=== PATIENT | male | born 1960 | race Caucasian/White ===

== ENCOUNTER 2016-07-07 01:41 | Inpatient (IN) | payer MEDICAID ==
[~2016-07-07] VITALS: Ht 175.3 cm; Wt 61.0 kg
[2016-07-07] VITALS (20 sets, daily range): BP systolic 83–125; BP diastolic 54–76; Ht 175.3 cm; Wt 61.0 kg
--- NOTE | ~2016-07-07 | CN ---
PATIENT NAME:DERIC COLEMAN MEDICAL RECORD: [id number] : 64 LOCATION:[id number] ADMIT DATE: 07/07/16 ACCOUNT: [id number] CONSULTING PHYSICIAN: MONSERRAT BROWN MD REFERRING PHYSICIAN: ISAIAH RUBIO MD DATE OF CONSULTATION: 07/07/2016 CONSULT REQUESTING PHYSICIAN: Isaiah Rubio MD. REASON FOR CONSULTATION: Vent management, drug overdose and acute mental status changes. HISTORY OF PRESENT ILLNESS: Mr. Coleman is a 56-year-old gentleman, who is already intubated and sedated. The history was taken by reviewing the patient's note and talking to the nursing staff, as well as with Dr. Rubio. The patient was brought in yesterday to the ER with respiratory distress. He was electively intubated in the ER. His urine tox screen was positive for multiple medications. On arrival into the ER, he was complaining of some chest pain and respiratory distress. Also, he was found to be hypotensive. His drug urine screen was positive for amphetamine, benzodiazepine and marijuana. His alcohol level was 1. PAST MEDICAL HISTORY: The detail is not obtainable, unknown. ALLERGIES: No known allergy information available. MEDICATIONS: Igenica was reviewed. PERSONAL AND SOCIAL HISTORY: The patient is abusing recreational drugs, marijuana and methamphetamine. FAMILY HISTORY: Not known. PHYSICAL EXAMINATION: GENERAL: Now, the patient is orally intubated and sedated. VITAL SIGNS: The blood pressure is 84-106/58, pulse is 64, respirations 14, temperature is 97.6, SPO2 is 100%. He is on assist control mechanical ventilation, 100% oxygen, tidal volume of 500, rate of 14. HEENT: Conjunctivae pink. Sclerae nonicteric. The pupils are pinpoint. NECK: Supple, no JVD. CHEST: There are bilateral crackles. No wheezing. HEART: Rate and rhythm regular, normal sound, no murmur. ABDOMEN: Soft, bowel sounds present. No hepatosplenomegaly. RECTAL: Deferred. EXTREMITIES: No cyanosis, no clubbing, no pedal edema. SKIN: The skin is warm, normal turgor. CENTRAL NERVOUS SYSTEM: There is no obvious cranial nerve abnormality. The gait was not tested. CHEST RADIOGRAPH: There is an increased bilateral interstitial marking. There is also questionable infiltrate in left lower lobe. OTHER LABORATORY DATA: CBC: The WBC is 10.2, hemoglobin 14.1, hematocrit 40.1, the platelet count 264. Chemistries: Sodium 130, potassium is 3.7, BUN is 26, creatinine 1.5. Magnesium 1.9. Liver enzymes within normal range. ABG: The CONSULT REPORT [id number] DERIC COLEMAN pH is 7.27, pCO2 of 57.9, pO2 of 61 and bicarbonate of 26.8. IMPRESSION: 1. Acute hypoxic hypercapnic respiratory failure. 2. Respiratory acidosis. 3. Recreational drug abuse. 4. Left lower lobe pneumonia. 5. Acute mental status changes secondary to multi-drug overdose. 6. Chest pain, rule out acute coronary syndrome. RECOMMENDATION: 1. We will continue mechanical ventilation, adjust the setting. 2. DVT, GI stress ulcer prevention. 3. Perez culture. 4. Followup labs and chest radiograph. Consult neurology. Discussed at length with Dr. Rubio. The critical care time is [address] Rubio, thank you for involving me in the care of Mr. Coleman. TRANSINT:[id number] Voice Confirmation ID: [id number] DOCUMENT ID: [id number] MONSERRAT BROWN MD CC: ISAIAH RUBIO MD [id number] DICTATION DATE: 07/07/16 1032 FLAME BURNER: 07/07/162014 ADM IN [facility] [address] [id number]
[2016-07-07 02:18] LABS: BASOPHILS 0.4 % (0-2); EOSINOPHILS 3.1 % (0-7); HEMATOCRIT 40.1 % (42.0-54.0); HEMOGLOBIN 14.1 g/dL (13.5-17.5); IMMATURE GRANULOCYTES 0.3 % (0-5); MCH 32.3 pg (26.0-34.0); MCHC 35.2 g/dL (31.0-37.0); MCV 91.8 fL (80.0-100.0); MEAN PLATELET VOLUME 8.5 fL (7.4-10.4); MONOCYTES 11.3 % (2-11); NEUTROPHILS 66.9 % (40-80); PLATELET COUNT 264 10x3/uL (130-400); RBC 4.37 10x6/uL (4.20-6.10); RDW 13.5 % (11.5-14.5); WBC 10.2 10x3/uL (4.8-10.8)
[2016-07-07 02:29] LABS: ALBUMIN 3.4 g/dL (3.4-5.0); ANION GAP 13.1 mmol/L (8-16); BILIRUBIN - TOTAL 0.4 mg/dL (0.2-1.3); CARBON DIOXIDE 25.6 mmol/L (21.0-32.0); CREATININE - SERUM 1.5 mg/dL (0.6-1.3); MAGNESIUM - SERUM 1.9 mg/dL (1.8-2.4); POTASSIUM - SERUM 3.7 mmol/L (3.5-5.1); PROTEIN - SERUM 6.7 g/dL (6.4-8.2)
[2016-07-07 03:01] LABS: APPEARANCE CLEAR (CLEAR); BILIRUBIN NEGATIVE (NEGATIVE); COLOR YELLOW (YELLOW); GLUCOSE NEGATIVE (NEGATIVE); KETONE NEGATIVE (NEGATIVE); LEUKOCYTE ESTERASE NEGATIVE (NEGATIVE); NITRITE NEGATIVE (NEGATIVE); PROTEIN NEGATIVE (NEGATIVE); UROBILINOGEN NORMAL (NORMAL)
[2016-07-07 03:05] LABS: UDS - AMPHET POSITIVE QUAL (NEGATIVE); UDS - BARB NEGATIVE QUAL (NEGATIVE); UDS - BENZO NEGATIVE QUAL (NEGATIVE); UDS - COCAINE POSITIVE QUAL (NEGATIVE); UDS - METH NEGATIVE QUAL (NEGATIVE); UDS - OPIATE NEGATIVE QUAL (NEGATIVE); UDS - PCP NEGATIVE QUAL (NEGATIVE); UDS - THC POSITIVE QUAL (NEGATIVE)
--- NOTE | 2016-07-07 05:15 | NUR ---
PT RECIEVED. VSS. ASSESSMENT COMPLETE PER FLOW SHEET. WILL REVIEW ORDERS.
--- NOTE | 2016-07-07 07:00 | NUR ---
REC'D REPORT AND RESUMED CARE, ETT TO VENTILATION AND SECURED, FIO2 100%, SAT 98%, LEFT NARE NGT TO LIWS, WHITE/CLEAR DRAINAGE TO CANISTER, LEFT AC PIV WITH PROPOFAL AT 8 MCG AND NS AT 100, TAVERAS TO GRAVITY WITH CLEAR YELLOW DRAINAGE TO BAG, , B/L WRIST RESTRAINTS AND SCD'S IN USE, ASSESSMENT COMPLETE PER FLOWSHEET, DOES NOT FOLLOW COMMANDS, REPOSITIONED TO RIGHT SIDE WITH PILLOW PROPPED TO BACK
--- NOTE | 2016-07-07 09:00 | NUR ---
AM MEDS GIVEN PER IV FLOWSHEET AND PROTOCAL, NO VISITORS AT THIS TIME
--- NOTE | 2016-07-07 13:35 | NUR ---
SPOKE WITH DESTINEY IN DR. CASTORENA'S OFFICE RE: CONSULT FOR AMS
--- NOTE | 2016-07-07 13:40 | NUR ---
PC FROM DR. CASTORENA STATUS UPDATE GIVEN, WILL SEE PATIENT ON TOMMORROW UNLESS THEIR IS ANY SIGNIFICANT CHANGES, NURSE TO CALL
--- NOTE | 2016-07-07 15:24 | NUR ---
PICC LINE PLACE WITHOUT DIFFICULTY, LAB DRAWN, ORDER PLACED FOR STAT CHEST XRAY,
[2016-07-07 16:02] LABS: TROPONIN-I 0.022 ng/mL (0.000-0.060)
--- NOTE | 2016-07-07 19:30 | NUR ---
RECEIVED CARE OF PT, ASSESSMENT PER FLOWSHEET. PT INTUBATED AND SEDATED ON VENT, NGT WITH PULMOCARE INFUSING AT 15 CC/HR, NO RESIDUAL NOTED, PLACEMENT VERIFIED WITH SMALL AIR BOLUS, TAVERAS CATH PATENT, PPP, HR SR AT A RATE OF 72 ON CM, BILAT SOFT WRIST RESTRAINTS IN PLACE, VSS.
--- NOTE | 2016-07-07 21:10 | NUR ---
NO VISITORS PRESENT AT THIS TIME, REPOSITIONED FOR COMFORT, ORAL CARE AND SUCTIONING PROVIDED, VSS.
--- NOTE | 2016-07-07 23:30 | NUR ---
REASSESSMENT PER FLOWSHEET, PT REPOSITIONED FOR COMFORT, ORAL CARE AND SUCTIONING PROVIDED, VSS.
[2016-07-08] VITALS (24 sets, daily range): BP systolic 91–129; BP diastolic 59–78
--- NOTE | 2016-07-08 01:10 | NUR ---
RESIDUAL 0, PULMOCARE INCREASED TO 25 CC/HR PER ORDER, WILL MONITOR.
--- NOTE | 2016-07-08 03:15 | NUR ---
REASSESSMENT PER FLOWSHEET, PT REPOSITIONED FOR COMFORT, ORAL CARE AND SUCTIONING PROVIDED, PT ATTEMPTING TO SIT UP IN BED AND PULLING AT RESTRAINTS, PROPOFOL GTT INCREASED TO 65 MCG/KG/MIN, WILL MONITOR.
[2016-07-08 03:48] LABS: BASOPHILS 0.1 % (0-2); EOSINOPHILS 0.3 % (0-7); HEMATOCRIT 41.1 % (42.0-54.0); HEMOGLOBIN 13.8 g/dL (13.5-17.5); IMMATURE GRANULOCYTES 0.3 % (0-5); LYMPHOCYTES 6.7 % (15-50); MCH 31.5 pg (26.0-34.0); MCHC 33.6 g/dL (31.0-37.0); MEAN PLATELET VOLUME 8.6 fL (7.4-10.4); MONOCYTES 6.3 % (2-11); NEUTROPHILS 86.3 % (40-80); PLATELET COUNT 251 10x3/uL (130-400); RBC 4.38 10x6/uL (4.20-6.10); RDW 13.5 % (11.5-14.5)
[2016-07-08 03:59] LABS: WBC 15.5 10x3/uL (4.8-10.8)
[2016-07-08 04:00] LABS: MCV 93.8 fL (80.0-100.0)
[2016-07-08 04:12] LABS: ALBUMIN 2.9 g/dL (3.4-5.0); ANION GAP 9.4 mmol/L (8-16); BILIRUBIN - TOTAL 0.27 mg/dL (0.2-1.3); CALCIUM 8.4 mg/dL (8.5-10.1); CARBON DIOXIDE 28.5 mmol/L (21.0-32.0); CREATININE - SERUM 1.2 mg/dL (0.6-1.3); MAGNESIUM - SERUM 1.7 mg/dL (1.8-2.4); POTASSIUM - SERUM 3.9 mmol/L (3.5-5.1); PROTEIN - SERUM 6.3 g/dL (6.4-8.2)
--- NOTE | 2016-07-08 04:57 | NUR ---
FIRST OF 2 DOSES OF MAG OX 400MG ADMINISTERED PER ELECTROLYTE PROTOCOL TO TREAT MAG LEVEL OF 1.7 ON AM LAB.
--- NOTE | 2016-07-08 08:24 | NUR ---
NOTED TEMP OF 103.1. ICE PACKS PLACED TO AXILLARY X 2 AND GROIN. ROOM TEMP DECREASED AND BLANKETS REMOVED. GOWN IS IN PLACE. WILL NOTIFY PHYSICIAN FOR FURTHER ORDERS. PT NOTED NOT FOLLOWING COMMANDS HOWEVER WILL MOVE LEGS AND ARMS SPONTANEOUSLY. WILL CONTINUE PLAN OF CARE.
--- NOTE | 2016-07-08 08:55 | NUR ---
SPOKE WITH DR THEODORE ABOUT TEMP OF 103.1 NOTED ONE TIME ORDER OF TYLENOL 650MG PER NGT. AND ORDERS FOR BLOOD AND URINE CULTURES. RESP CULTURE NOT NECESSARY TO REGATHER SINCE RESP CULTURE HAD BEEN SENT TO LAB TODAY ALREADY. WILL PROCESS ORDERS.
--- NOTE | 2016-07-08 09:28 | NUR ---
AT THIS TIME NOTED PT HAD A VISITOR WHO CLAIMED TO BE PTS IVAN. HAD BEEN UNABLE TO CONTACT ANYONE IN REFERENCE TO PT TO DETERMINE FAMILY CONTACT OR ALLERGIES. AT THIS TIME PTS IVAN STATED [facility]CTED [facility] AT THIS TIME AND WAS NOTIFIED THAT PTS NEXT OF KIN TO NOTIFY IS SISTER SUMAN SAMANO AT [phone]. ALSO WAS NOTIFIED THAT PT HAS AN ALLERGY TO PENICILLIN. WILL PROCESS INFORMATION. WILL CONTINUE PLAN OF CARE.
--- NOTE | 2016-07-08 09:35 | NUR ---
ATTEMPTED TO CALL PTS SISTER SUMAN, WHEN CALLED NOTED RECIEVED MSG STATING NUMBER IS NOT IN SERVICE. WILL CONTINUE TO FIND CONTACT INFORMATION ON PT.
--- NOTE | 2016-07-08 10:53 | NUR ---
NO ACUTE DISTRESS NOTED. NOTED TEMP HAS DECREASED FROM 103.1 THIS AM ORALLY TO 100.0 ORALLY AT THIS TIME. ICE PACKS STILL BEING USED. WILL CONTINUE PLAN OF CARE.
--- NOTE | 2016-07-08 12:02 | NUR ---
NO CHANGE. PT TURNED Q2H. NO ACUTE DISTRESS NOTED. PT MOVES LEGS AND ARMS AT TIMES. DOES NOT FOLLOW COMMANDS. WILL CONTINUE PLAN OF CARE.
--- NOTE | 2016-07-08 14:50 | NUR ---
SPOKE WITH PTS SISTER AT THIS TIME, RECIEVED UPDATED, CORRECT PHONE NUMBER INFORMATION. ALSO CALL IN CODE SET UP AT THIS TIME. NO ACUTE DISTRESS NOTED. WILL CONTINUE PLAN OF CARE.
--- NOTE | 2016-07-08 16:22 | NUR ---
NO ACUTE DISTRESS NOTED. NO CHANGE. PT MOVES LEGS AND ARMS AT TIME. DOES NOT FOLLOW SIMPLE COMMANDS. WILL CONTINUE PLAN OF CARE.
--- NOTE | 2016-07-08 17:31 | NUR ---
NOTED PT FOLLOWING COMMANDS AT THIS TIME. SQUEEZES HANDS AND MOVES FEET UPON COMMAND. NO ACUTE DISTRESS NOTED. TURNED Q2H. WILL CONTINUE PLAN OF CARE.
--- NOTE | 2016-07-08 18:25 | NUR ---
VISITORS AT BEDSIDE. UPDATE GIVEN. NO ACUTE DISTRESS NOTED. WILL CONTINUE PLAN OF CARE.
--- NOTE | 2016-07-08 19:30 | NUR ---
RESUMED CARE OF PT, ASSESSMENT PER FLOWSHEET. PT AROUSES TO DEEP STIMULI, SEDATED ON VENT, NGT WITH PULMOCARE INFUSING AT 35 CC/HR, PLACEMENT VERIFIED WITH SMALL AIR BOLUS, PPP, TAVERAS CATH PATENT, HR SR AT RATE OF 80 ON CM, REPOSITIONED FOR COMFORT, ORAL CARE PROVIDED.
--- NOTE | 2016-07-08 21:20 | NUR ---
NO VISITORS PRESENT AT THIS TIME, PT REPOSITIONED FOR COMFORT, ORAL CARE AND SUCTIONING DONE, COPIOUS AMTS OF YELLOW SECRETIONS NOTED.
--- NOTE | 2016-07-08 23:30 | NUR ---
REASSESSMENT PER FLOWSHEET, PT REPOSITIONED FOR COMFORT, ORAL CARE AND SUCTIONING PROVIDED, NO RESIDUAL NOTED WITH NGT-PULMOCARE INCREASED TO 45CC/HR PER ORDER.
[2016-07-09] VITALS (24 sets, daily range): BP systolic 108–159; BP diastolic 62–94
--- NOTE | 2016-07-09 01:45 | NUR ---
COMPLETE BATH AND LINEN CHANGE DONE, ORAL CARE, SUCTIONING AND TAVERAS CARE PROVIDED. POSITIONED FOR COMFORT.
--- NOTE | 2016-07-09 03:15 | NUR ---
REASSESSMENT PER FLOWSHEET, NO ACUTE CHANGES NOTED, ORAL CARE AND SUCTIONING PROVIDED, VSS, CONT POC.
[2016-07-09 03:42] LABS: BASOPHILS 0.1 % (0-2); EOSINOPHILS 0.3 % (0-7); HEMATOCRIT 38.4 % (42.0-54.0); HEMOGLOBIN 12.9 g/dL (13.5-17.5); IMMATURE GRANULOCYTES 0.3 % (0-5); LYMPHOCYTES 7.3 % (15-50); MCH 31.5 pg (26.0-34.0); MCHC 33.6 g/dL (31.0-37.0); MCV 93.9 fL (80.0-100.0); MEAN PLATELET VOLUME 8.8 fL (7.4-10.4); MONOCYTES 7.3 % (2-11); NEUTROPHILS 84.7 % (40-80); PLATELET COUNT 224 10x3/uL (130-400); RBC 4.09 10x6/uL (4.20-6.10); RDW 13.9 % (11.5-14.5); WBC 17.5 10x3/uL (4.8-10.8)
[2016-07-09 04:06] LABS: ALBUMIN 2.6 g/dL (3.4-5.0); ALKALINE PHOSPHATASE 41 U/L (46-116); ALT (SGPT) 31 U/L (10-68); BILIRUBIN - TOTAL 0.26 mg/dL (0.2-1.3); CALC OSMOLALITY 268 mosm/kg (275-300); CALCIUM 8.5 mg/dL (8.5-10.1); CARBON DIOXIDE 30.4 mmol/L (21.0-32.0); CHLORIDE - SERUM 100 mmol/L (98-107); GLUCOSE 152 mg/dL (74-106); MAGNESIUM - SERUM 1.9 mg/dL (1.8-2.4); PROTEIN - SERUM 5.9 g/dL (6.4-8.2); SODIUM 133 mmol/L (136-145); UREA NITROGEN 12 mg/dL (7-18); eGFR NON AFRICAN AMERICAN 83 mL/min (90-120)
--- NOTE | 2016-07-09 05:20 | NUR ---
AM LABS REVIEWED, NOTHING TO TREAT PER ELECTROLYTE PROTOCOL.
--- NOTE | 2016-07-09 05:30 | NUR ---
PROPOFOL GTT DECREASED TO 40 MCG/KG/MIN PER MD ORDER FOR WEANING OF VENT.
--- NOTE | 2016-07-09 05:45 | NUR ---
PT GAGGING ON ETT, ATTEMPTING TO SIT UP IN BED, KICKING LEGS. ALL ATTEMPTS TO CALM PT ARE UNSUCCESSFUL, PROPOFOL GTT INCREASED TO 65 MCG/KG/MIN, ORAL CARE AND SUCTIONING PROVIDED, WILL MONITOR CLOSELY.
--- NOTE | 2016-07-09 07:09 | NUR ---
NOTED ORDERS FOR PT TO BE WEANED TODAY TO SEE IF HE CAN BE EXTUBATED. PROPIFOL DECREASED AT THIS TIME SO PT CAN BE WEANED. NO ACUTE DISTRESS NOTED. PT FOLLOWING COMMANDS. WILL CONTINUE PLAN OF CARE.
--- NOTE | 2016-07-09 07:50 | NUR ---
NOTED ALTHOUGH PT HAD RESTRAINTS SECURED IN PLACE, PT WAS ABLE TO MANUEVER DOWN IN THE BED TO EXTUBATE SELF. AT THIS TIME HE WAS SUCTIONED AND 2L NC PLACED BY RESPIRATORY THERAPY. PT NOTED CONFUSED, REORIENTATION PROVIDED. DR THEODORE ON FLOOR AT THIS TIME AND NOTIFIED. ORDERS RECIEVED FOR BEDSIDE SWALLOW EVAL WITH SPEECH AND IF PASSES THEN TO START CLEAR LIQUID DIET. ALSO ORDER IF OXYGEN SATURATION DECRASES BELOW 90% TO START VASOTHERM WITH RESPIRATORY THERAPY OR BIPAP AT 30%. ALSO AT THIS TIME NOTED ORDER TO CONTINUE WITH WRIST RESTRAINTS FOR SAFETY FROM FURTHER PULLING AT LINES SUCH PICC. WILL CONTINUE PLAN OF CARE AND WILL PLACE ORDERS.
--- NOTE | 2016-07-09 10:45 | NUR ---
ATTEMPTED TO CALL PTS PERSON OF CONTACT, SISTER, AT THIS TIME TO GIVE UPDATE ON PT. DID NOT RECIEVE ANSWER. LEFT VOICEMAIL TO CALL BACK UNIT. NO ACUTE DISTRESS NOTED AT THIS TIME. WILL CONTINUE PLAN OF CARE.
--- NOTE | 2016-07-09 10:55 | NUR ---
RESTRAINTS DC AT THIS TIME. PT MORE ALERT AND STATES HE WILL NOT PULL AT LINES OR TUBING. WILL CONTINUE PLAN OF CARE.
--- NOTE | 2016-07-09 14:15 | NUR ---
NO CHANGE NOTED. NO ACUTE DISTRESS NOTED. SPEECH THERAPY IN ROOM ASSESSING PT WITH BEDSIDE SWALLOW EVAL. WILL CONTINUE PLAN OF CARE.
--- NOTE | 2016-07-09 17:57 | NUR ---
UP IN BED AWAKE AT THIS TIME. DENIES ANY NEEDS. NO ACUTE DISTRESS NOTED. WILL CONTINUE PLAN OF CARE.
--- NOTE | 2016-07-09 19:15 | NUR ---
Received patient resting in bed with eyes open watching TV, Assessment completed per flowsheet. Patient AO x4, calm and cooperative. Eyes PERRLA @ 3mm with brisk response, sclera white. S1/S2 noted with patient NSR on telemetry with HR 82, rhythmic and regular. Breathing is even and unlabored on 4L via NC, crackles noted bilateral upper with diminished lower. Abdomen is round and soft, bowel sounds active x4. Saunders secured in place, concentrated yellow urine noted in collection. Weakness noted all extremities with all pulses palpable, cap refill <3 sec. PICC noted R upper arm, patent with fluids infusing. Patient denies pain or other needs at this time, all VSS and will conitnue to monitor.
--- NOTE | 2016-07-09 23:15 | NUR ---
Reassessment completed per flowsheet, patient resting in bed with eyes closed. Patient NSR on telemetry with HR 79, rhythmic and regular. Breathing is even and unlabored on 4L via NC, O2 sat 96%. All pulses palpable with cap refill <3 sec. Patient denies pain or other needs at this time, all VSS and will continue to monitor.
[2016-07-10] VITALS (11 sets, daily range): BP systolic 105–148; BP diastolic 71–90
--- NOTE | 2016-07-10 03:05 | NUR ---
Reassessment completed per flowsheet, patient resting in bed with eyes closed. Patient NSR on telemetry with HR 75, rhythmic and regular. Breathing is even and unlabored on 4L via NC, O2 sat 98%. Crackles noted bilateral upper with diminished lower. Patient denies pain or other needs at this time, all VSS and will continue to monitor.
[2016-07-10 04:29] LABS: BASOPHILS 0.1 % (0-2); EOSINOPHILS 0.5 % (0-7); HEMATOCRIT 37.2 % (42.0-54.0); HEMOGLOBIN 12.7 g/dL (13.5-17.5); IMMATURE GRANULOCYTES 0.2 % (0-5); LYMPHOCYTES 12.4 % (15-50); MCH 31.9 pg (26.0-34.0); MCHC 34.1 g/dL (31.0-37.0); MCV 93.5 fL (80.0-100.0); MEAN PLATELET VOLUME 8.8 fL (7.4-10.4); MONOCYTES 7.7 % (2-11); NEUTROPHILS 79.1 % (40-80); PLATELET COUNT 213 10x3/uL (130-400); RBC 3.98 10x6/uL (4.20-6.10); RDW 13.7 % (11.5-14.5)
[2016-07-10 04:40] LABS: WBC 12.1 10x3/uL (4.8-10.8)
[2016-07-10 04:52] LABS: ALBUMIN 2.4 g/dL (3.4-5.0); ALKALINE PHOSPHATASE 40 U/L (46-116); ALT (SGPT) 30 U/L (10-68); BILIRUBIN - TOTAL 0.32 mg/dL (0.2-1.3); CALC OSMOLALITY 282 mosm/kg (275-300); CALCIUM 8.5 mg/dL (8.5-10.1); CARBON DIOXIDE 29.2 mmol/L (21.0-32.0); CHLORIDE - SERUM 101 mmol/L (98-107); CREATININE - SERUM 0.8 mg/dL (0.6-1.3); GLUCOSE 371 mg/dL (74-106); MAGNESIUM - SERUM 1.5 mg/dL (1.8-2.4); POTASSIUM - SERUM 3.4 mmol/L (3.5-5.1); PROTEIN - SERUM 5.9 g/dL (6.4-8.2); SODIUM 135 mmol/L (136-145); UREA NITROGEN 8 mg/dL (7-18); eGFR NON AFRICAN AMERICAN > 90 mL/min (90-120)
--- NOTE | 2016-07-10 07:00 | NUR ---
PT AWAKE ALERT AND ORIENTED. ABLE TO FOLLOW COMMANDS. DENIES PAIN AT THIS TIME. PT IS ABLE TO TURN SELF IN BED WITH NO DIFFICULTY. NORMAL SINUS ON MONITOR. PT ON ROOM AIR WITH O2 SAT 95%. PICC LINE SALINE LOCKED, CDI. NO COMPLAINTS AT THIS TIME. VITAL SIGNS STABLE. WILL CONTINUE TO MONITOR
--- NOTE | 2016-07-10 09:00 | NUR ---
TRANSFER ORDERS IN COMPUTER. PT NOTIFIED OF TRANSFER. SWALLOW EVAL COMPLETED AND PT ADVANCED TO REGULAR DIET. VITAL SIGNS STABLE
--- NOTE | 2016-07-10 10:13 | NUR ---
Nutrition follow-up: Pt self-extubated 07/09 Diet now advanced to regular as tolerated with thin liquids per speech PO intake 100% of meals Labs reviewed RDN following.
--- NOTE | 2016-07-10 11:00 | NUR ---
NO ACUTE CHANGES IN PT STATUS AT THIS TIME. VITAL SIGNS STABLE. PT ABLE TO TAKE PO MEDS WITH NO DIFFICULTY. WILL CONINUE TO MONITOR
--- NOTE | 2016-07-10 13:00 | NUR ---
ER MERY CALLED AND PT BELONGINGS BROUGHT UP TO UNIT FOR PT. HE WAS GIVEN CELL PHONE, GLASSES, AND WALLET PER REQUEST. NO FURTHER CHANGES AT THIS TIME
--- NOTE | 2016-07-10 15:00 | NUR ---
PT HAS NO COMPLAINTS AT THIS TIME AND DENIES PAIN. WAITING FOR TRANSFER TO MED/SURG. VITAL SIGNS STABLE
--- NOTE | 2016-07-10 17:00 | NUR ---
PT REMAINS STABLE AT THIS TIME. TOLERATING REGULAR DIET. VITAL SIGNS STABLE. WILL CONTNIUE TO MONITOR
--- NOTE | 2016-07-10 19:30 | NUR ---
Received patient awake and alert in bed watching TV, Assessment completed per flowsheet. Patient AO x4, calm and cooperative. Eyes PERRLA @ 3mm with brisk response, patient wears glasses. S1/S2 noted NSR on telemetry with HR 97, rhythmic and regular. Breathing is even and unlabored on room air with O2 sat 95%, Lung sounds clear throughout. Abdomen is soft and flat, bowel sounds active x4. Saunders secured in place, concentrated yellow urine noted in collection bag. Full ROM all extremities with slight weakness noted, all pulses palpable with cap refill <3 sec. PICC noted R upper arm dbl lumen, patent with fluids infusing. Patient denies pain or other needs at this time, all VSS and will conitnue to monitor.
--- NOTE | 2016-07-10 21:00 | NUR ---
Patient resting in bed with eyes open, no visitors at this time. Patient denies pain or other needs at this time, all VSS and will continue to monitor.
--- NOTE | 2016-07-10 23:10 | NUR ---
Reassessment completed per flowsheet, patient is transfer awaiting bed. S1/S2 noted with patient NSR on telemetry with HR 80, rhythmic and regular. Breathing is even and unlabored on room air, O2 sat 96%. Patient denies pain or other needs at this time, all VSS and will conitinue to monitor.
--- NOTE | 2016-07-10 23:30 | NUR ---
Saunders D/C per orders, no difficulties. Will continue to monitor.
[2016-07-11 03:00] VITALS: BP 147/91
[2016-07-11 05:01] LABS: BASOPHILS 0.1 % (0-2); EOSINOPHILS 1.8 % (0-7); HEMATOCRIT 38.4 % (42.0-54.0); HEMOGLOBIN 13.2 g/dL (13.5-17.5); IMMATURE GRANULOCYTES 0.1 % (0-5); LYMPHOCYTES 15.9 % (15-50); MCH 31.7 pg (26.0-34.0); MCHC 34.4 g/dL (31.0-37.0); MCV 92.3 fL (80.0-100.0); MONOCYTES 12.9 % (2-11); NEUTROPHILS 69.2 % (40-80); PLATELET COUNT 247 10x3/uL (130-400); RBC 4.16 10x6/uL (4.20-6.10); RDW 13.9 % (11.5-14.5)
[2016-07-11 05:06] LABS: WBC 8.6 10x3/uL (4.8-10.8)
[2016-07-11 05:16] LABS: ALBUMIN 2.4 g/dL (3.4-5.0); ALKALINE PHOSPHATASE 40 U/L (46-116); ALT (SGPT) 33 U/L (10-68); CALC OSMOLALITY 276 mosm/kg (275-300); CALCIUM 8.5 mg/dL (8.5-10.1); CARBON DIOXIDE 28.4 mmol/L (21.0-32.0); CHLORIDE - SERUM 99 mmol/L (98-107); CREATININE - SERUM 0.9 mg/dL (0.6-1.3); MAGNESIUM - SERUM 1.6 mg/dL (1.8-2.4); POTASSIUM - SERUM 3.6 mmol/L (3.5-5.1); PROTEIN - SERUM 6.1 g/dL (6.4-8.2); SODIUM 133 mmol/L (136-145); UREA NITROGEN 9 mg/dL (7-18); eGFR NON AFRICAN AMERICAN > 90 mL/min (90-120)
[2016-07-11 05:19] LABS: GLUCOSE 314 mg/dL (74-106)
[2016-07-11 07:00] VITALS: BP 145/91
--- NOTE | 2016-07-11 07:00 | NUR ---
PT SITTING UP IN BED WITH NO COMPLAINTS. ABLE TO FOLLOW COMMANDS WITH NO DEFICITS. NORMAL SINUS ON MONITOR. ROOM AIR WITH STABLE O2 SAT. PT EATING REGULAR DIET INDEPENDENTLY AND TOLERATING WELL. WILL CONTINUE TO MONITOR
--- NOTE | 2016-07-11 09:00 | NUR ---
PT HAD FULL BATH AND COMPLETE LINEN CHANGE. PT IS NOW UP IN CHAIR AND WAS ABLE TO WALK TO CHAIR WITHOUT DIFFICULTY. NO COMPLAINS AT THIS TIME. WILL CONTINUE TO MONITOR
--- NOTE | 2016-07-11 10:44 | NUR ---
REPORT CALLED TO [facility] ON MED/SURG FOR PT TRANSFER. WILL TRANSFER WHEN ROOM IS CLEAN.
--- NOTE | 2016-07-11 13:45 | NUR ---
PATIENT RECEIVED TO FLOOR FROM ICU VIA WHEELCHAIR. TRANSFERRED TO BED. A/O X4. ORIENTED TO ROOM. SIDE RAILS UP X1. BED IN LOW POSITION. CALL LIGHT IN REACH. DENIES NEEDS.
--- NOTE | 2016-07-11 13:45 | NUR ---
PT TRANSFER TO MED/SURG VIA WHEELCHAIR WITH BELONGINGS. PT STABLE AT THIS TIME. REPORT GIVEN
[2016-07-11 14:06] VITALS: BP 139/86
--- NOTE | 2016-07-11 14:07 | NUR ---
IV ABX INITIATED PER ORDER. RIGHT PICC PATENT. FLUSHES EASY WITH BRISK BLOOD RETURN PRESENT. DENIES NEEDS. CALL LIGHT IN REACH.
[2016-07-11 15:48] VITALS: BP 149/81
--- NOTE | 2016-07-11 16:00 | NUR ---
ALERT IN BED WATCHING TV. RESPIRATIONS EVEN AND UNLABORED. DENIES NEEDS. SIDE RAILS UP X2. BED IN LOW POSITION. CALL LIGHT IN REACH.
[2016-07-11 20:00] VITALS: BP 149/88
--- NOTE | 2016-07-11 20:00 | NUR ---
ASSESSMENT PER FLOWSHEET. IV PATENT RT PICC LINE OF D5LR INFUSING AT 50CC'S/HR SITE CLEAR. SR UP X2 CALL LIGHT WITHIN REACH.
--- NOTE | 2016-07-11 22:00 | NUR ---
MEDS GIVEN PER MAR.
--- NOTE | 2016-07-12 | NUR ---
RESTING QUIETLY VOIDS WELL IN URINAL.
--- NOTE | 2016-07-12 03:00 | NUR ---
RESTING QUIETLY DENIES NEEDS.
--- NOTE | 2016-07-12 04:53 | NUR ---
NO CHANGES IN ASSESSMENT BLOOD DRAWN FROM PICC LINE FOR LAB TESTS.
[2016-07-12 05:35] LABS: BASOPHILS 0.3 % (0-2); EOSINOPHILS 3.8 % (0-7); HEMATOCRIT 43.1 % (42.0-54.0); HEMOGLOBIN 14.8 g/dL (13.5-17.5); IMMATURE GRANULOCYTES 0.2 % (0-5); LYMPHOCYTES 18.2 % (15-50); MCH 31.6 pg (26.0-34.0); MCHC 34.3 g/dL (31.0-37.0); MCV 91.9 fL (80.0-100.0); MONOCYTES 15.2 % (2-11); NEUTROPHILS 62.3 % (40-80); PLATELET COUNT 281 10x3/uL (130-400); RBC 4.69 10x6/uL (4.20-6.10); RDW 13.7 % (11.5-14.5); WBC 9.2 10x3/uL (4.8-10.8)
[2016-07-12 06:03] LABS: ALBUMIN 2.9 g/dL (3.4-5.0); ALKALINE PHOSPHATASE 47 U/L (46-116); BILIRUBIN - TOTAL 0.48 mg/dL (0.2-1.3); CALCIUM 8.8 mg/dL (8.5-10.1); CARBON DIOXIDE 27.2 mmol/L (21.0-32.0); CHLORIDE - SERUM 98 mmol/L (98-107); CREATININE - SERUM 0.8 mg/dL (0.6-1.3); MAGNESIUM - SERUM 1.8 mg/dL (1.8-2.4); PHOSPHOROUS 3.5 mg/dL (2.5-4.9); PROTEIN - SERUM 6.5 g/dL (6.4-8.2); SODIUM 133 mmol/L (136-145); eGFR NON AFRICAN AMERICAN > 90 mL/min (90-120)
[2016-07-12 06:06] LABS: ALT (SGPT) 43 U/L (10-68); CALC OSMOLALITY 266 mosm/kg (275-300); GLUCOSE 97 mg/dL (74-106); UREA NITROGEN 14 mg/dL (7-18)
--- NOTE | 2016-07-12 07:30 | NUR ---
RECIEVED PT DURING WALKING ROUNDS. PT REQUESTING TO DISCHARGE. INFORMED PT THAT WE WOULD SPEAK WITH DR ABOUT DISCHARGE WHEN THEY ARRIVED. BED IN LOW POSITION AND CALL LIGHT WITHIN REACH. WILL CONTINUE TO MONITOR.
[2016-07-12 08:02] VITALS: BP 149/97
[2016-07-12] MEDS ORDERED: MUCINEX D1 TAB.SR . PO (08:10)
[2016-07-12] MEDS ORDERED: DOXYCYCLINE HY100 M2 PO (08:10)
[2016-07-12] MEDS ORDERED: PROVENTIL HFA6.7 GM INH (08:12)
--- NOTE | 2016-07-12 08:51 | NUR ---
Patient Name: DERIC DIXON Admission Status: ER Accout number: [id number] Admission Date: 07-07-2016 : 1960 Admission Diagnosis:RESPIRATORY FAILURE, UNSP, UNSP W HYPOXIA OR HYPERCAPNI Attending: DALIA Current LOS: 5 Anticipated DC Date: 07-12-2016 Planned Disposition: Home Primary Insurance: MEDICAID [place] Discharge Planning Comments: CM MET WITH PATIENT REGARDING D/C NEEDS AND PLANS. PATIENT HAS A ROOMMATE (LUIS MANUEL) AND HE IS DRIVING PATIENT HOME AT DISCHARGE TODAY. PATIENT STATED HE HAS 2 STEPS W/RAILS TO ENTER HIS HOME AND NO STAIRS INSIDE. PATIENT STATED HE IS INDEPENDENT WITH HIS CARE AND HAS A CANE IF NEEDED. PATIENT GOES TO THE [facility] SICK AND USES [facility]. PATIENT HAS REFUSED HOME HEALTH AND STATED HE HAD NO OTHER NEEDS FOR DISCHARGE. CM WILL CONTINUE TO FOLLOW PATIENT WITH D/C NEEDS AND PLANS. PCP [facility] LUIS MANUEL (ROOMMATE) [phone] Inbound Customer Service Representative: Ayala Edward Is the patient Alert and Oriented? Yes 0 * How many steps to enter\exit or inside your home? 2 w/rails 0 * PCP [facility] 0 * Pharmacy [facility] 0 * Preadmission Environment Home with Family 0 * ADLs Independent 0 * Equipment Cane 0 * List name and contact numbers for known caregivers / representatives who currently or will assist patient after discharge: LUIS MANUEL (ROOMMATE) [phone] 0 * Community resources currently utilized None 0 * Additional services required to return to the preadmission environment? Yes 0 * Can the patient safely return to the preadmission environment? Yes 0 * Has this patient been hospitalized within the prior 30 days at any hospital? No 0 Grand Total: 0
--- NOTE | 2016-07-12 09:35 | NUR ---
PT DISCHARGED TO HOME AT THIS TIME.
[2016-07-12 15:24] LABS: AEROBE ID Preliminary report (())
== END 2016-07-12 09:41 | disposition home or self-care (01) | DRG 917 ==
LOC: D.ER 01:41 → D.ICU 04:27 → D.MS 07-11 13:43
PROVIDERS: Emergency Medicine; Internal Medicine Pulmonary Disease; ADMIT Family Medicine Adult Medicine
PROC: 02HV33Z Insertion of Infusion Device into Superior Vena Cava, Percutaneous Approach (ICD-10-PCS; principal; 2016-07-07)
PROC: B548ZZA Ultrasonography of Superior Vena Cava, Guidance (ICD-10-PCS; 2016-07-07)
PROC: 0T9B70Z Drainage of Bladder with Drainage Device, Via Natural or Artificial Opening (ICD-10-PCS; 2016-07-07)
PROC: 5A1945Z Respiratory Ventilation, 24-96 Consecutive Hours (ICD-10-PCS; 2016-07-07)
DX: T43.622A Poisoning by amphetamines, intentional self-harm, initial encounter (principal); J96.22 Acute and chronic respiratory failure with hypercapnia; J96.21 Acute and chronic respiratory failure with hypoxia; J18.9 Pneumonia, unspecified organism; G93.40 Encephalopathy, unspecified; E87.2 Acidosis; J44.0 Chronic obstructive pulmonary disease with (acute) lower respiratory infection; T40.7X2A Poisoning by cannabis (derivatives), intentional self-harm, initial encounter; E87.6 Hypokalemia; E83.42 Hypomagnesemia; Z78.1 Physical restraint status; I95.9 Hypotension, unspecified; F10.129 Alcohol abuse with intoxication, unspecified; Y90.0 Blood alcohol level of less than 20 mg/100 ml

== ENCOUNTER 2018-05-23 00:25 | Emergency (ER) | payer MEDICAID ==
[~2018-05-23] VITALS: Ht 175.3 cm; Wt 68.2 kg
[~2018-05-23 00:25] MED LIST: DOXYCYCLINE HY100 M2 PO; MUCINEX D1 TAB.SR . PO; PROVENTIL HFA6.7 GM INH
[2018-05-23 00:28] VITALS: Ht 175.3 cm; Wt 68.2 kg
[2018-05-23 01:33] LABS: BASOPHILS 0.2 % (0-2); EOSINOPHILS 1.5 % (0-7); HEMATOCRIT 39.5 % (42.0-54.0); IMMATURE GRANULOCYTES 0.5 % (0-5); LYMPHOCYTES 15.6 % (15-50); MCH 31.7 pg (26.0-34.0); MCHC 35.4 g/dL (31.0-37.0); MCV 89.6 fL (80.0-100.0); MONOCYTES 7.8 % (2-11); NEUTROPHILS 74.4 % (40-80); PLATELET COUNT 227 10x3/uL (130-400); RBC 4.41 10x6/uL (4.20-6.10); RDW 13.5 % (11.5-14.5); WBC 13.2 10x3/uL (4.8-10.8)
[2018-05-23 01:47] LABS: ALKALINE PHOSPHATASE 45 U/L (46-116); ALT (SGPT) 56 U/L (10-68); BILIRUBIN - TOTAL 0.22 mg/dL (0.2-1.3); CALC OSMOLALITY 258 mosm/kg (275-300); CALCIUM 7.8 mg/dL (8.5-10.1); CHLORIDE - SERUM 93 mmol/L (98-107); GLUCOSE 100 mg/dL (74-106); POTASSIUM - SERUM 3.4 mmol/L (3.5-5.1); PROTEIN - SERUM 6.6 g/dL (6.4-8.2); SODIUM 128 mmol/L (136-145); UREA NITROGEN 18 mg/dL (7-18); eGFR NON AFRICAN AMERICAN 82 mL/min (90-120)
[2018-05-23 01:55] LABS: LIPASE 638 U/L (73-393); PRO BNP 214 pg/mL (0-125)
[2018-05-23 01:58] LABS: TROPONIN-I < 0.017 ng/mL (0.000-0.060)
[2018-05-23 04:03] VITALS: BP 124/72
== END 2018-05-23 04:16 | disposition home or self-care (01) ==
LOC: D.ER 00:25
PROVIDERS: Family Medicine
DX: F10.129 Alcohol abuse with intoxication, unspecified (principal); F14.10 Cocaine abuse, uncomplicated; K43.9 Ventral hernia without obstruction or gangrene